=== PATIENT | male | born 1955 | race Caucasian/White ===

== ENCOUNTER → 2018-02-25 | Outpatient (CLI) | payer OTHER ==
--- NOTE | 2018-02-25 13:59 | PCVCIMAG ---
EXAM: BILATERAL CAROTID DUPLEX INDICATION: Carotid Occlusive Disease. FINDINGS: Doppler Measurements (centimeters per second): RIGHT: Peak CCA-82, Peak ECA-93, Diastolic ICA-35, Peak ICA-93, ICA/CCA Ratio-1.1. LEFT: Peak CCA-89, Peak ECA-140, Diastolic ICA-160, Peak ICA-382, ICA/CCA Ratio-4.3. RIGHT CAROTID: The carotid bulb has mild plaque. The proximal internal carotid artery shows <40% stenosis. The common carotid artery shows no significant stenosis. The external carotid artery shows no significant stenosis. LEFT CAROTID: The carotid bulb has moderate plaque. The proximal internal carotid artery shows 90% stenosis. The common carotid artery shows no significant stenosis. The external carotid artery shows 40% stenosis. Antegrade flow in both vertebral arteries. IMPRESSION: <40% stenosis of the right internal carotid artery with mild plaque. 90% stenosis of the left internal carotid artery with moderate plaque. LOC:[place] [id number]
--- NOTE | 2018-02-25 14:43 | PCVCIMAG ---
APPROVED REPORT Study performed: 02/25/2018 12:54:18 EXAM: Comprehensive 2D, Doppler, and color-flow Echocardiogram Patient Location: Echo lab Room #: 2 BSA: 2.21 HR: 61 bpmBP: 143/80 mmHg Rhythm: NSR Risk Factors: Cardiac Risk Factors: HTN, DM Indications Diabetes Fatigue Chest Pain Hypertension/HDD A Fib s/p ablation 2D Dimensions IVSd: 13.71 (7-11mm)LVOT Diam: 22.43 (18-24mm) LVDd: 47.56 mm PWd: 10.97 (7-11mm)Ascending Ao: 37.94 (22-36mm) LVDs: 27.79 (25-40mm) Left Atrium: 33.48 (27-40mm) Aortic Root: 28.68 mm LV Single Plane 4CH: 58.31 % LV Single Plane 2CH: 59.00 % Biplane EF: 59.6 % Volumes Left Atrial Volume (Systole) Single Plane 4CH: 77.82 mLSingle Plane 2CH: 97.58 mL Biplane LA Volume: 87.00 mLLA ESV Index: 40.00 mL/m2 Aortic Valve AoV Peak Everett.: 1.44 m/s AO Peak Gr.: 8.29 mmHgLVOT Max P.08 mmHg LVOT Max V: 1.13 m/s EMILY Vmax: 3.09 cm2 Mitral Valve E/A Ratio: 1.1 MV Decel. Time: 225.56 ms MV E Max Everett.: 0.66 m/s MV A Everett.: 0.60 m/s IVRT: 121.11 ms TDI E/Lateral E': 8.25E/Medial E': 13.20 Medial E' Everett.: 0.05 m/s Lateral E' Everett.: 0.08 m/s Pulmonary Valve PV Peak [place]rett.: 0.98 m/sPV Peak Gr.: 3.86 mmHg Pulmonary Vein P Vein S: 0.58 m/sP Vein A: 0.30 m/s P Vein D: 0.37 m/sP Vein A Dur.: 110.7 msec P Vein S/D Ratio: 1.57 Tricuspid Valve TR Peak Everett.: 1.94 m/s TR Peak Gr.: 15.05 mmHg TV Vmax: 0.50 m/sPA Pressure: 22.00 mmHg Left Ventricle The left ventricle is normal size. There is normal LV segmental wall motion. Mild to moderate concentric left ventricular hypertrophy. Left ventricular systolic function is normal. The left ventricular ejection fraction is within the normal range. LVEF is 60%. The left ventricular diastolic function is normal. Right Ventricle The right ventricle is normal size. The right ventricular systolic function is normal. Atria The left atrium size is normal. The right atrium size is normal. Aortic Valve Aortic valve is trileaflet. No aortic regurgitation is present. There is no aortic valvular stenosis. Mitral Valve The mitral valve is normal in structure. There is no mitral valve regurgitation noted. No evidence of mitral valve stenosis. Tricuspid Valve The tricuspid valve is normal in structure. Trace tricuspid regurgitation. No apparent pulmonary hypertension. Pulmonic Valve The pulmonary valve is normal in structure. There is no pulmonic valvular regurgitation. Great Vessels The aortic root is normal in size. IVC is normal in size and collapses >50% with inspiration. Pericardium There is no pericardial effusion. <Conclusion> The left ventricle is normal size. LVEF is 60%. The left ventricular diastolic function is normal. The right ventricle is normal size. The left atrium size is normal. Aortic valve is trileaflet. There is no mitral valve regurgitation noted. Mild to moderate concentric left ventricular hypertrophy. There is no mitral valve regurgitation noted. Trace tricuspid regurgitation. No apparent pulmonary hypertension. The aortic root is normal in size. There is no pericardial effusion.
== END | disposition home or self-care (01) ==
LOC: PCVCIMAG 12:51
PROVIDERS: ATTEND Internal Medicine Cardiovascular Disease
DX: I65.23 Occlusion and stenosis of bilateral carotid arteries (principal); R09.89 Other specified symptoms and signs involving the circulatory and respiratory systems; I48.91 Unspecified atrial fibrillation; I15.9 Secondary hypertension, unspecified; E78.5 Hyperlipidemia, unspecified; R07.9 Chest pain, unspecified; E11.9 Type 2 diabetes mellitus without complications; R06.09 Other forms of dyspnea; R53.83 Other fatigue
CPT/HCPCS: 93306; 93880

== ENCOUNTER → 2019-03-10 | Outpatient (CLI) | payer OTHER ==
--- NOTE | 2019-03-10 09:35 | PCVCIMAG ---
APPROVED REPORT Laterality: Bilateral Indications Stenosis Doppler Spectral Velocity Analysis PSV / EDVPSV / EDV ECA (R) 95 / 14 cm/sECA (L) 0 / 0 cm/s dICA (R) 55 / 21 cm/sdICA (L) 60 / 23 cm/s Vinh (R) 69 / 26 cm/smICA (L) 68 / 28 cm/s pICA (R) 61 / 21 cm/spICA (L) 49 / 16 cm/s Bulb (R) 77 / 23 cm/sBulb (L) 49 / 18 cm/s dCCA (R) 82 / 20 cm/sdCCA (L) 51 / 17 cm/s mCCA (R) 117 / 23 cm/smCCA (L) 59 / 20 cm/s Vert (R) 64 / 24 cm/sVert (L) 20 / 8 cm/s ICA/CCA 0.84 ICA/CCA 1.33 Findings The right carotid bulb has mild plaque. The right proximal internal carotid artery shows <40% stenosis. The right common carotid artery shows no significant stenosis. The right external carotid artery shows no significant stenosis. The left carotid bulb has no significant plaque. The left proximal internal carotid artery shows no significant stenosis. The left common carotid artery shows no significant stenosis. The left external carotid artery shows no significant stenosis. Conclusion 1. Right internal carotid artery plaquing (<40%) 2. Left internal carotid without significant stenosis; prior CEA 3. Antegrade vertebral flow In comparison with the study dated February 25, 2018, there has been interval left carotid endarterectomy
== END | disposition home or self-care (01) ==
LOC: PCVCIMAG 08:47
PROVIDERS: ATTEND Internal Medicine Cardiovascular Disease
DX: I65.23 Occlusion and stenosis of bilateral carotid arteries (principal); I25.10 Atherosclerotic heart disease of native coronary artery without angina pectoris; E78.5 Hyperlipidemia, unspecified; I10 Essential (primary) hypertension; I48.0 Paroxysmal atrial fibrillation; I95.89 Other hypotension; K21.9 Gastro-esophageal reflux disease without esophagitis; E11.9 Type 2 diabetes mellitus without complications; Z79.82 Long term (current) use of aspirin; Z79.899 Other long term (current) drug therapy; Z88.8 Allergy status to other drugs, medicaments and biological substances
CPT/HCPCS: 93880

== ENCOUNTER → 2019-04-06 | Outpatient (CLI) | payer OTHER ==
--- NOTE | 2019-04-07 10:23 | PCVCIMAG ---
APPROVED REPORT Study performed: 04/06/2019 11:28:45 Exam: Stress Echocardiogram Indication: CAD s/p PCI, Atrial Fibrillation,bradycardia Patient Location: Echo lab Stress Nurse: Linn Perez RN Room #: 2 Status: routine Ht: 5 ft 9 in HR: 74 bpm BP: 146/92 mmHg Rhythm: NSR Medical History Medical History: CAD s/p stent, HTN, Hyperlipidemia Cardiac Risk Factors: HTN, Hyperlipidemia Previous Cardiac Procedures: PCI Exercise History: Indeterminate Procedure The patient underwent an Exercise Stress Test using the Vivek Protocol. Blood pressure, heart rate, and EKG were monitored. An Echocardiogram was performed by orthotics prosthetics technician in four stages in quad fashion. At peak stress, four selected images were obtained and placed side by side with resting images for comparison. Stress Test Details Stress Test: Exercise stress testing was performed using a Vivek protocol. HR Resting HR: 74 bpmMax Heart Rate (APMHR): 158 bpm Max HR Achieved: 169 bpmTarget HR (85% APMHR): 134 bpm % of APMHR: 106 Recovery HR: 91 bpm HR response to stress: Normal HR response to stress BP Resting BP: 146/92 mmHg Max BP: 180/88 mmHg Recovery BP: 146/78 mmHg BP response to stress: Normal blood pressure response to stress. ECG Resting ECG: Sinus Rhythm Stress ECG: Sinus Rhythm, nonspecific ST-T abnormalities ST Change: Non-ischemic Maximum ST Deviation: -1.6 mm Arrhythmia: occ PVC, PAC Recovery ECG: Sinus Rhythm Recovery ST Change: Non-ischemic Recovery ST Deviation: -0.45 mm Recovery Arrhythmia: None Clinical Reason for Termination: Maximal effort Stress Symptoms: none Exercise duration: 6 min 20 sec Highest Stage Achieved: Stage 3: 3.4 mph at 14% grade. Exercise capacity: 7.9 METs Overall Exercise Capacity for Age: Poor Scale: Sedentary Angina Score: None No complications. Stress ECG Conclusion Velasquez Treadmill Score is 14.0 which is Low risk. Pre-Stress Echo The resting Echocardiogram showed normal left ventricular contractility with an estimated Ejection Fraction of about 55-60%. Normal wall motion in all segments on baseline images. Post-Stress Echo The stress Echocardiogram showed normal left ventricular contractility with an estimated Ejection Fraction of about 65-70%. Normal augmentation of wall motion in all segments on post stress images. Clinical No clinical or ECG evidence for ischemia. Conclusion Clinical Response: Non-ischemic Exercise Capacity: Below Average Stress ECG Response: Non-ischemic Stress Echo Images: Non-ischemic No clinical, EKG or echocardiographic evidence for ischemia. No echocardiographic evidence for exercise induced ischemia. Normal stress echocardiogram with maximal exercise stress. Normal color doppler. No stenosis or regurgitation seen in the mitral,aortic,tricuspid or pulmonic valves. <Conclusion> No clinical, EKG or echocardiographic evidence for ischemia. No echocardiographic evidence for exercise induced ischemia. Normal stress echocardiogram with maximal exercise stress. Normal color doppler. No stenosis or regurgitation seen in the mitral,aortic,tricuspid or pulmonic valves.
== END | disposition home or self-care (01) ==
LOC: PCVCIMAG 11:09
PROVIDERS: ATTEND Internal Medicine Cardiovascular Disease
DX: I25.10 Atherosclerotic heart disease of native coronary artery without angina pectoris (principal); I10 Essential (primary) hypertension; I48.0 Paroxysmal atrial fibrillation; E78.5 Hyperlipidemia, unspecified
CPT/HCPCS: 93325; 93351